=== PATIENT | female | born 1955 | race Caucasian/White ===

== ENCOUNTER 2024-05-06 13:54 | Emergency (ER) | payer MEDICARE ==
[~2024-05-06] VITALS: Ht 157.5 cm; Wt 78.0 kg
[2024-05-06] MEDS ORDERED: ACYC200C24 PO (16:35)
[2024-05-06] MEDS: 0.9%NACL 1000ML 1,000 ML IV ONE (17:19)
[2024-05-06] MEDS: INSULIN HUMULIN R 100 UNIT/ML 3ML SQ ONE (17:21)
[2024-05-06 17:42] LABS: BASOPHILS # (AUTO) 0.03 K/uL (0.00-0.20); BASOPHILS % (AUTO) 0.5 % (0.0-5.0); EOSINOPHILS # (AUTO) 0.13 K/uL (0.00-0.70); EOSINOPHILS % (AUTO) 2.3 % (0.0-8.0); IMMATURE GRANULOCYTE ABSOLUTE 0.01 K/uL (0-1); LYMPHOCYTES # (AUTO) 1.2 K/uL (1.0-4.8); LYMPHOCYTES % (AUTO) 21.1 % (21.0-51.0); MEAN CORPUSCULAR HEMOGLOBIN 32.2 pg (27.0-33.0); MEAN CORPUSCULAR HGB CONC 34.5 g/dL (32.0-36.0); MEAN CORPUSCULAR VOLUME 93.4 fL (79-99); MONOCYTES # (AUTO) 0.6 K/uL (0.1-1.0); NEUTROPHILS # (AUTO) 3.7 K/uL (1.8-7.7); NEUTROPHILS % (AUTO) 64.9 % (40.0-77.0); PLATELET COUNT (AUTO) 154 K/uL (130-400); RED BLOOD CELL COUNT(AUTO) 4.07 MIL/uL (4.00-5.50); RED CELL DISTRIBUTION WIDTH 12.4 % (11.0-15.5); WHITE BLOOD COUNT (AUTO) 5.6 K/uL (4.8-10.8)
[2024-05-06 17:53] LABS: POTASSIUM 3.9 mmol/L (3.5-5.1)
[2024-05-06 18:24] VITALS: BP 131/79; PULSE 71; RESP 18; O2SAT 99
== END 2024-05-06 18:34 | disposition home or self-care (01) ==
LOC: EDH 13:54
DX: B02.9 Zoster without complications (principal); R47.81 Slurred speech; E11.9 Type 2 diabetes mellitus without complications; I10 Essential (primary) hypertension; Z88.5 Allergy status to narcotic agent; Z91.040 Latex allergy status; Z86.73 Personal history of transient ischemic attack (TIA), and cerebral infarction without residual deficits
CPT/HCPCS: 99285; 80048; 85025; 82948 ×2; 36415; 70450; 96360; J1815; J7030

== ENCOUNTER 2024-07-09 17:35 | Observation (INO) | payer MEDICARE ==
[~2024-07-09] VITALS: Ht 157.5 cm; Wt 76.4 kg
[~2024-07-09 17:35] MED LIST: ACYC200C24 PO
[2024-07-09] MEDS: DiphenhydrAMINE HCL 50 MG/ML VIAL IV ONE (18:19)
[2024-07-09] MEDS: Solu-medROL 125MG VIAL IVP ONE (18:19)
[2024-07-09] MEDS: FAMOTIDINE 20MG VIAL IV ONE (18:19)
[2024-07-09 20:17] LABS: BASOPHILS # (AUTO) 0.04 K/uL (0.00-0.20); BASOPHILS % (AUTO) 0.4 % (0.0-5.0); EOSINOPHILS # (AUTO) 0.14 K/uL (0.00-0.70); EOSINOPHILS % (AUTO) 1.2 % (0.0-8.0); HEMATOCRIT 38.7 % (36-48); IMMATURE GRANULOCYTE ABSOLUTE 0.04 K/uL (0-1); LYMPHOCYTES # (AUTO) 2.7 K/uL (1.0-4.8); LYMPHOCYTES % (AUTO) 23.5 % (21.0-51.0); MEAN CORPUSCULAR HEMOGLOBIN 31.9 pg (27.0-33.0); MEAN CORPUSCULAR HGB CONC 34.6 g/dL (32.0-36.0); MEAN CORPUSCULAR VOLUME 92.1 fL (79-99); MONOCYTES # (AUTO) 1.1 K/uL (0.1-1.0); MONOCYTES % (AUTO) 9.6 % (3.0-13.0); NEUTROPHILS # (AUTO) 7.4 K/uL (1.8-7.7); NEUTROPHILS % (AUTO) 64.9 % (40.0-77.0); PLATELET COUNT (AUTO) 243 K/uL (130-400); RED CELL DISTRIBUTION WIDTH 13.1 % (11.0-15.5); WHITE BLOOD COUNT (AUTO) 11.4 K/uL (4.8-10.8)
[2024-07-09 20:24] LABS: INR 1.04 (0.85-1.15); PROTHROMBIN TIME 11.2 SEC (9.6-11.6)
[2024-07-09 20:25] LABS: PARTIAL THROMBOPLASTIN TIME 35.1 SEC (26.3-35.5)
[2024-07-09 20:35] LABS: CREATININE 0.9 mg/dL (0.5-1.0); POTASSIUM 3.3 mmol/L (3.5-5.1)
[2024-07-09] MEDS ORDERED: GLUCAGON 1MG KIT 1 MG ML IM PRN (22:00)
[2024-07-09] MEDS ORDERED: hydrALAZine 20MG/ML VIAL IV PRN (22:00)
[2024-07-09] MEDS ORDERED: DEXTROSE 50%-WATER 50 ML DISP.SYRIN IV PRN (22:00)
[2024-07-09] MEDS ORDERED: ONDANSETRON 4MG INJ IV PRN (22:00)
[2024-07-09] MEDS: POTASSIUM CHLORIDE 20MEQ/100ML 100 ML IV PRN (22:19)
[2024-07-09] MEDS: 0.9%NACL 1000ML 1,000 ML IV SCH (22:27)
[2024-07-09 23:05] VITALS: BP 133/71; PULSE 65; RESP 20; TEMP 97.5
[2024-07-10 03:23] VITALS: BP 133/76; PULSE 68; RESP 18; TEMP 98.5
[2024-07-10 05:03] LABS: BASOPHILS # (AUTO) 0.02 K/uL (0.00-0.20); BASOPHILS % (AUTO) 0.2 % (0.0-5.0); IMMATURE GRANULOCYTE ABSOLUTE 0.05 K/uL (0-1); LYMPHOCYTES # (AUTO) 0.9 K/uL (1.0-4.8); LYMPHOCYTES % (AUTO) 9.1 % (21.0-51.0); MEAN CORPUSCULAR HGB CONC 33.9 g/dL (32.0-36.0); MEAN CORPUSCULAR VOLUME 94.3 fL (79-99); MONOCYTES # (AUTO) 0.1 K/uL (0.1-1.0); MONOCYTES % (AUTO) 0.8 % (3.0-13.0); NEUTROPHILS % (AUTO) 89.4 % (40.0-77.0); PLATELET COUNT (AUTO) 220 K/uL (130-400); RED BLOOD CELL COUNT(AUTO) 4.03 MIL/uL (4.00-5.50); WHITE BLOOD COUNT (AUTO) 10.1 K/uL (4.8-10.8)
[2024-07-10 05:23] LABS: BILIRUBIN,TOTAL 0.6 mg/dL (0.2-1.0); CREATININE 0.9 mg/dL (0.5-1.0); MAGNESIUM 1.5 mg/dL (1.80-2.40); POTASSIUM 4.1 mmol/L (3.5-5.1); TOTAL PROTEIN, SERUM 7.1 g/dL (6.0-8.3)
[2024-07-10 05:36] LABS: HEMOGLOBIN A1C 8.9 % (4.0-6.0)
[2024-07-10] MEDS: MAGNESIUM 2GM PREMIX 50ML 50 ML IV PRN (06:03)
[2024-07-10] MEDS: INSULIN humuLIN R 100 UNIT/ML 3ML SQ SCH (06:12)
[2024-07-10 06:26] LABS: ERYTHROCYTE SEDIMENTATION RATE 61 MM/HR (0-30)
[2024-07-10 08:00] VITALS: BP 113/63; PULSE 64; RESP 14; RESP 15; TEMP 97.7
[2024-07-10 09:00] VITALS: O2SAT 99
[2024-07-10] MEDS: ENOXAPARIN SODIUM 30 MG/0.3 ML SQ SCH (09:47)
[2024-07-10] MEDS: Solu-medROL 40MG VIAL IVP SCH (09:48)
[2024-07-10 12:00] VITALS: BP 121/65; PULSE 61; RESP 14; TEMP 97.7
[2024-07-10 16:00] VITALS: BP 122/67; PULSE 69; RESP 16; TEMP 98.3
[2024-07-10 20:00] VITALS: BP 115/65; PULSE 76; RESP 17; TEMP 97.5; O2SAT 97
[2024-07-10] MEDS: FAMOTIDINE 20MG VIAL IV SCH (20:20)
[2024-07-10] MEDS: SIMETHICONE 40 MG/0.6 ML ML PO SCH (20:21)
[2024-07-11] VITALS: BP 87/41; PULSE 60; RESP 17; TEMP 98.2
[2024-07-11 04:00] VITALS: BP 118/57; PULSE 51; RESP 16; TEMP 98.2
[2024-07-11 05:30] LABS: BASOPHILS # (AUTO) 0.03 K/uL (0.00-0.20); BASOPHILS % (AUTO) 0.2 % (0.0-5.0); EOSINOPHILS # (AUTO) 0.04 K/uL (0.00-0.70); EOSINOPHILS % (AUTO) 0.3 % (0.0-8.0); HEMATOCRIT 33.1 % (36-48); IMMATURE GRANULOCYTE ABSOLUTE 0.08 K/uL (0-1); LYMPHOCYTES # (AUTO) 3.1 K/uL (1.0-4.8); LYMPHOCYTES % (AUTO) 21.7 % (21.0-51.0); MEAN CORPUSCULAR HEMOGLOBIN 32.8 pg (27.0-33.0); MEAN CORPUSCULAR HGB CONC 34.1 g/dL (32.0-36.0); MEAN CORPUSCULAR VOLUME 95.9 fL (79-99); MONOCYTES # (AUTO) 1.1 K/uL (0.1-1.0); MONOCYTES % (AUTO) 7.6 % (3.0-13.0); NEUTROPHILS # (AUTO) 9.8 K/uL (1.8-7.7); NEUTROPHILS % (AUTO) 69.6 % (40.0-77.0); PLATELET COUNT (AUTO) 204 K/uL (130-400); RED BLOOD CELL COUNT(AUTO) 3.45 MIL/uL (4.00-5.50); RED CELL DISTRIBUTION WIDTH 13.2 % (11.0-15.5)
[2024-07-11 06:12] LABS: ALBUMIN 2.5 g/dL (3.5-5.0); BILIRUBIN,TOTAL 0.3 mg/dL (0.2-1.0); CREATININE 0.9 mg/dL (0.5-1.0); MAGNESIUM 1.9 mg/dL (1.80-2.40); POTASSIUM 3.5 mmol/L (3.5-5.1); TOTAL PROTEIN, SERUM 6.3 g/dL (6.0-8.3)
[2024-07-11 08:00] VITALS: BP 99/56; PULSE 51; RESP 18; TEMP 98.2
[2024-07-11] MEDS: metFORmin HCL 500 MG TAB.SR.24H PO SCH (08:53)
[2024-07-11] MEDS: PREDNISONE 20 MG TABLET PO SCH (08:53)
[2024-07-11] MEDS: SIMETHICONE 40 MG/0.6 ML ML PO SCH (08:55)
[2024-07-11 09:00] VITALS: O2SAT 99
[2024-07-11] MEDS ORDERED: METFORMIN HCL PO (10:49)
[2024-07-11] MEDS ORDERED: PRED20B PO (10:49)
== END 2024-07-11 11:18 | disposition home or self-care (01) ==
LOC: EDH 17:35 → EDHIP 21:38 → 3DH 23:05
PROVIDERS: ADMIT Hospitalist; ATTEND Hospitalist
DX: T78.3XXA Angioneurotic edema, initial encounter (principal); I10 Essential (primary) hypertension; E11.65 Type 2 diabetes mellitus with hyperglycemia; E87.1 Hypo-osmolality and hyponatremia; E87.6 Hypokalemia; E83.52 Hypercalcemia; F10.10 Alcohol abuse, uncomplicated; R47.81 Slurred speech; F17.210 Nicotine dependence, cigarettes, uncomplicated; Z88.5 Allergy status to narcotic agent; Z91.040 Latex allergy status; Z86.73 Personal history of transient ischemic attack (TIA), and cerebral infarction without residual deficits; Y90.0 Blood alcohol level of less than 20 mg/100 ml; Y92.89 Other specified places as the place of occurrence of the external cause
CPT/HCPCS: 96375; 99285; 84484; 80048; 85025 ×3; 85610; 85730; 36415 ×3; 70450; 93005; 96372 ×2; 96376; 96361 ×2; 96365; 96366 ×2; 83036; 83735 ×2; 80061; 80053 ×2; 85651; 82948 ×5; G0378 ×38; J1200; J3490 ×2; J2919 ×2; J3480; J1815 ×5; J3475 ×2; J1650 ×2

== ENCOUNTER 2024-07-30 16:40 | Emergency (ER) | payer MEDICARE ==
[~2024-07-30] VITALS: Ht 157.5 cm; Wt 77.1 kg
[~2024-07-30 16:40] MED LIST changes: -ACYC200C24 PO; +AMLO5TAB4 PO; +METFORMIN HCL PO; +OSEL75 PO
[2024-07-30 17:25] LABS: BASOPHILS # (AUTO) 0.04 K/uL (0.00-0.20); BASOPHILS % (AUTO) 0.4 % (0.0-5.0); EOSINOPHILS # (AUTO) 0.09 K/uL (0.00-0.70); HEMATOCRIT 44.7 % (36-48); IMMATURE GRANULOCYTE ABSOLUTE 0.04 K/uL (0-1); LYMPHOCYTES # (AUTO) 1.7 K/uL (1.0-4.8); LYMPHOCYTES % (AUTO) 18.5 % (21.0-51.0); MEAN CORPUSCULAR HGB CONC 33.8 g/dL (32.0-36.0); MEAN CORPUSCULAR VOLUME 94.7 fL (79-99); MONOCYTES # (AUTO) 0.6 K/uL (0.1-1.0); MONOCYTES % (AUTO) 5.9 % (3.0-13.0); NEUTROPHILS # (AUTO) 6.8 K/uL (1.8-7.7); NEUTROPHILS % (AUTO) 73.8 % (40.0-77.0); PLATELET COUNT (AUTO) 267 K/uL (130-400); RED BLOOD CELL COUNT(AUTO) 4.72 MIL/uL (4.00-5.50); RED CELL DISTRIBUTION WIDTH 12.2 % (11.0-15.5); WHITE BLOOD COUNT (AUTO) 9.3 K/uL (4.8-10.8)
[2024-07-30 17:39] LABS: POTASSIUM 4.1 mmol/L (3.5-5.1)
[2024-07-30] MEDS: PANTOPrazole 40 MG/VIAL IVP ONE (17:42)
[2024-07-30] MEDS: metoCLOPRAmide 10 MG/2 ML VIAL IVP ONE (17:43)
[2024-07-30 17:51] LABS: AMPHET/METH SCREEN,URINE NEGATIVE (NEGATIVE); BARBITURATE SCREEN, URINE NEGATIVE (NEGATIVE); BENZODIAZEPINES SCREEN,URINE NEGATIVE (NEGATIVE); CANNABINOID SCREEN,URINE NEGATIVE (NEGATIVE); COCAINE SCREEN,URINE POSITIVE (NEGATIVE); OPIATE SCREEN,URINE NEGATIVE (NEGATIVE); PHENCYCLIDINE SCREEN,URINE NEGATIVE (NEGATIVE)
[2024-07-30 17:52] LABS: ALBUMIN 3.5 g/dL (3.5-5.0); BILIRUBIN,DIRECT 0.1 mg/dL (0.0-0.3); BILIRUBIN,TOTAL 0.4 mg/dL (0.2-1.0); TOTAL PROTEIN, SERUM 7.9 g/dL (6.0-8.3)
[2024-07-30 17:52] LABS: APPEARANCE,URINE CLEAR (CLEAR); BILIRUBIN,URINE NEGATIVE (NEGATIVE); COLOR,URINE LIGHT-YELLOW (YELLOW); GLUCOSE, URINE (UA) >=1000 mg/dL (NEGATIVE); KETONES,URINE 10 mg/dL (NEGATIVE); LEUKOCYTE ESTERASE ,URINE NEGATIVE Leu/uL (NEGATIVE); NITRATE,URINE NEGATIVE (NEGATIVE); OCCULT BLOOD,URINE NEGATIVE (NEGATIVE); PROTEIN,URINE 30 mg/dL (NEGATIVE); UROBILINOGEN,URINE 0.2 mg/dL (0.2-1.0)
[2024-07-30 17:53] LABS: ADD UA MICROSCOPIC YES
[2024-07-30] MEDS ORDERED: hydrALAZine 20MG/ML VIAL IM ONE (18:00)
[2024-07-30] MEDS: hydrALAZine 20MG/ML VIAL IV ONE (18:01)
[2024-07-30 18:08] LABS: MUCUS,URINE RARE LPF (None Seen); RBC,URINE 0-1 /HPF (0-1); SQUAMOUS EPITHELIAL CELL,UR RARE /HPF (0-2); WBC,URINE 0-1 /HPF (0-1)
[2024-07-30] MEDS ORDERED: IpraTROPium/alBUTERol SULFATE 3 ML SOLUTION IH ONE (19:00)
[2024-07-30] MEDS: 0.9%NACL 1000ML 1,000 ML IV ONE (19:03)
[2024-07-30] MEDS ORDERED: LACT10SO5 PO (19:44)
[2024-07-30 20:02] VITALS: BP 162/81; PULSE 65; RESP 18; TEMP 98.4; O2SAT 97
== END 2024-07-30 20:03 | disposition home or self-care (01) ==
LOC: EDH 16:40
DX: F14.10 Cocaine abuse, uncomplicated (principal); K59.00 Constipation, unspecified; R11.2 Nausea with vomiting, unspecified; E11.9 Type 2 diabetes mellitus without complications; Z91.010 Allergy to peanuts; Z88.5 Allergy status to narcotic agent; Z91.040 Latex allergy status; Z86.73 Personal history of transient ischemic attack (TIA), and cerebral infarction without residual deficits; Z79.899 Other long term (current) drug therapy; Z79.84 Long term (current) use of oral hypoglycemic drugs
CPT/HCPCS: 99285; 74176; 96374; 96375; 96361; 81001; 80076; 84484; 80048; 80305; 83690; 85025; 82948; 36415; 93005; J7030 ×2; J0360; J2470; J2765